=== PATIENT | female | born 1960 | race Caucasian/White ===

== ENCOUNTER 2019-09-03 10:46 | Emergency (ER) | payer MEDICARE ==
[~2019-09-03] VITALS: Ht 165.1 cm; Wt 93.9 kg
[2019-09-03 10:49] VITALS: BP 129/78
[2019-09-03 11:27] LABS: BASOPHILS # (AUTO) 0.08 x10^3/uL (0-0.1); BASOPHILS % (AUTO) 1 % (0-1); EOSINOPHILS % (AUTO) 2 % (1-7); LYMPHOCYTES % (AUTO) 21 % (22-44); MD NO; MEAN CORPUSCULAR HEMOGLOBIN 29.3 pg (27.0-34.8); MEAN CORPUSCULAR HGB CONC 33.6 g/dL (32.4-35.8); MEAN CORPUSCULAR VOLUME 87.1 fL (80-100); MEAN PLATELET VOLUME 9.6 fL (7.4-10.4); MONOCYTES # (AUTO) 1.31 x10^3/uL (0.2-0.8); MONOCYTES % (AUTO) 12 % (2-9); NEUTROPHILS # (AUTO) 6.92 x10^3/uL (1.8-6.8); NEUTROPHILS % (AUTO) 65 % (42-75); PLATELET COUNT 239 x10^3/uL (130-400); RED CELL DISTRIBUTION WIDTH 16.2 % (9.6-15.2)
[2019-09-03 11:32] LABS: MICROSCOPIC AUTO
[2019-09-03 11:33] LABS: CULTURE INDICATED? YES
[2019-09-03 11:43] LABS: ALBUMIN 3.6 g/dL (3.4-5.0); ANION GAP 7 mmol/L (5-15); CHLORIDE 105 mmol/L (98-107)
[2019-09-03 11:48] LABS: ALANINE AMINOTRANSFERASE 18 U/L (12-78); ALKALINE PHOSPHATASE 90 U/L (45-117); BILIRUBIN,TOTAL 0.6 mg/dL (0.2-1.0); CREATININE 0.63 mg/dL (0.55-1.02); TOTAL PROTEIN 8.2 g/dL (6.4-8.2); TROPONIN I < 0.015 ng/mL (0.000-0.045)
--- NOTE | 2019-09-03 13:58 | NUR ---
GUIDANCE CONSULTANT: PT ASSESED BY CHARU BENÍTEZ AND DC'D FROM TRIAGE.
== END 2019-09-03 14:01 | disposition home or self-care (01) ==
LOC: ED 13:40
DX: N30.00 Acute cystitis without hematuria (principal); J00 Acute nasopharyngitis [common cold]; R05 Cough; M79.7 Fibromyalgia; F17.200 Nicotine dependence, unspecified, uncomplicated
CPT/HCPCS: 36415; 71046; 80053; 81001; 84484; 85025; 87077; 87086; 87186; 93005; 99284

== ENCOUNTER 2019-09-20 17:31 | Emergency (ER) | payer MEDICARE ==
[~2019-09-20] VITALS: Ht 162.6 cm; Wt 92.0 kg
--- NOTE | 2019-09-20 18:25 | NUR ---
PT TO ROOM FROM LOBBY.
--- NOTE | 2019-09-20 18:40 | NUR ---
URINE COLLECTED/SENT TO LAB.
[2019-09-20 19:17] LABS: CULTURE INDICATED? YES; MICROSCOPIC INDICATED
[2019-09-20] MEDS ORDERED: ACETAMINOPHEN 325 MG TABLET ONE (20:26)
[2019-09-20] MEDS ORDERED: ACETAMINOPHEN 325 MG TABLET PO ONE (20:30)
[2019-09-20 21:11] VITALS: BP 132/61
--- NOTE | 2019-09-20 21:12 | NUR ---
PT D/C'D HOME WITH KNEE IMMOBILIZER AND WALKER.
== END 2019-09-20 21:14 | disposition home or self-care (01) ==
LOC: ED 21:09
DX: S83.91XA Sprain of unspecified site of right knee, initial encounter (principal); N30.01 Acute cystitis with hematuria; I10 Essential (primary) hypertension; E03.9 Hypothyroidism, unspecified; F17.210 Nicotine dependence, cigarettes, uncomplicated; W50.2XXA Accidental twist by another person, initial encounter; Y93.89 Activity, other specified; Y92.89 Other specified places as the place of occurrence of the external cause; Y99.8 Other external cause status
CPT/HCPCS: 29505; 81001; 87077; 87086; 87186; 99284

== ENCOUNTER 2019-11-12 13:23 | Emergency (ER) | payer MEDICARE ==
[~2019-11-12] VITALS: Ht 162.6 cm; Wt 90.6 kg
--- NOTE | 2019-11-12 14:05 | NUR ---
THIS IS A 59 YO FEMALE WHO PRESENTS TO THE ER C/O COUGH X 2 WEEKS, WORSE OVER THE LAST FEW DAYS AND CONGESTION IN EARS/NOSE. PT WAS TESTED AND TRX'D FOR STREP ON 11/01. PT CURRENTLY DENIES STREP THROAT AND REPROTS NEG CO-VID TEST. PT AO X 4. SKIN PWD. RESP EVEN AND UNLABORED. PT NSR 80'S. CALL LIGHT WITHIN REACH. WILL CONT TO MONITOR PT.
[2019-11-12] MEDS ORDERED: ALBUTEROL/IPRATROPIUM 2.5MG/0.5MG, 3 ML NPPB ONE (14:30)
[2019-11-12] MEDS ORDERED: ALBUTEROL/IPRATROPIUM 2.5MG/0.5MG, 3 ML ONE ×2 (14:43→14:51)
[2019-11-12 14:45] LABS: BASOPHILS # (AUTO) 0.07 x10^3/uL (0-0.1); BASOPHILS % (AUTO) 1 % (0-1); EOSINOPHILS # (AUTO) 0.31 x10^3/uL (0-0.4); EOSINOPHILS % (AUTO) 2 % (1-7); LYMPHOCYTES # (AUTO) 3.45 x10^3/uL (1-3.4); LYMPHOCYTES % (AUTO) 26 % (22-44); MD NO; MEAN CORPUSCULAR HEMOGLOBIN 29.1 pg (27.0-34.8); MEAN CORPUSCULAR HGB CONC 33.4 g/dL (32.4-35.8); MEAN CORPUSCULAR VOLUME 87.1 fL (80-100); MEAN PLATELET VOLUME 9.1 fL (7.4-10.4); MONOCYTES # (AUTO) 0.84 x10^3/uL (0.2-0.8); MONOCYTES % (AUTO) 6 % (2-9); NEUTROPHILS # (AUTO) 8.62 x10^3/uL (1.8-6.8); NEUTROPHILS % (AUTO) 65 % (42-75); PLATELET COUNT 297 x10^3/uL (130-400); RED BLOOD COUNT 5.16 x10^6/uL (3.82-5.3); RED CELL DISTRIBUTION WIDTH 15.4 % (9.6-15.2)
[2019-11-12 14:55] LABS: ALBUMIN 3.4 g/dL (3.4-5.0); ANION GAP 7 mmol/L (5-15); CALCIUM 9.8 mg/dL (8.5-10.1); CHLORIDE 106 mmol/L (98-107); CREATININE 0.53 mg/dL (0.55-1.02)
[2019-11-12] MEDS ORDERED: DOXYCYCLINE 100MG TABLET PO ONE (15:00)
--- NOTE | 2019-11-12 15:18 | NUR ---
PT MOVED TO NEGATIVE PRESSURE ROOM AND BREATHING TRX INITIATED. PT AO X 4. SKIN PWD. RESP EVEN AND UNLABORED. PT CONT TO HAVE OCCAISIONAL LOOSE PRODUCTIVE COUGH. 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 CALL LIGHT WITHIN REACH. WILL CONT TO MONITOR PT.
[2019-11-12] MEDS ORDERED: DOXYCYCLINE 100MG TABLET ONE ×2 (16:05→16:30)
--- NOTE | 2019-11-12 16:42 | NUR ---
PT MEDICATED ORDERED. PT REQUESTED FOOD D/T HAVING HX OF GI UPSET WITH DOXYCYCLINE. PROVIDED WITH PUDDING. PT AO X 4. SKIN PWD. RESP EVEN AND UNLABORED. NO ACUTE DISTRESS NOTED AT THIS TIME. CALL LIGHT WITHIN REACH. WILL CONT TO MONITOR PT.
[2019-11-12 16:51] VITALS: BP 125/70
== END 2019-11-12 16:55 | disposition home or self-care (01) ==
LOC: ED 14:55
DX: J15.9 Unspecified bacterial pneumonia (principal); J44.1 Chronic obstructive pulmonary disease with (acute) exacerbation; I10 Essential (primary) hypertension; J44.9 Chronic obstructive pulmonary disease, unspecified; M79.7 Fibromyalgia; E03.9 Hypothyroidism, unspecified; F17.200 Nicotine dependence, unspecified, uncomplicated
CPT/HCPCS: 36415; 71045; 80048; 82040; 83605; 84145; 85025; 87040; 93005; 99285; J7512

== ENCOUNTER 2020-03-10 14:03 | Emergency (ER) | payer OTHER ==
[~2020-03-10] VITALS: Ht 162.6 cm; Wt 88.6 kg
--- NOTE | 2020-03-10 14:30 | NUR ---
THIS IS A 59 YO FEMALE WHO PRSENTS TO THE ER C/O EXACERBATION OF ACUTE ON CHRONIC LEFT SHOULDER/BACK INJURY. PT IS CURRENTLY BEING TREATED BY WORKMAN'S COMP FOR A FALL. PT REPORTS SHE CANNOT TAKE MOST OPIODS OR NSAIDS AND DECLINES AVAILABLE PAIN MEDICATIONS OFFERED BY PA AT THIS TIME. PT AO X 4. PT MOVING ALL EXTREMITIES W/O DIFFICULTY WITH THE EXCEPTION THAT PT STATES SHE "CAN'T RAISE HER ARM ABOVE HER HEAD". PT ON CONT BP AND SPO2 MONITORS. WILL CONT TO MONITOR PT.
[2020-03-10] MEDS ORDERED: FENO160T PO (15:31)
[2020-03-10] MEDS ORDERED: DIAZ5TAB4 PO (15:31)
[2020-03-10] MEDS ORDERED: GABA800T5 PO (15:31)
[2020-03-10] MEDS ORDERED: HYDR25TA6 PO (15:31)
[2020-03-10] MEDS ORDERED: CYCL-259 PO (15:31)
[2020-03-10] MEDS ORDERED: LANS15CA5 PO (15:31)
[2020-03-10] MEDS ORDERED: CHOL10003 PO (15:31)
[2020-03-10] MEDS ORDERED: ACET-1600 PO (15:31)
[2020-03-10] MEDS ORDERED: TAPE50TA9 PO (15:31)
[2020-03-10 15:48] VITALS: BP 109/63
== END 2020-03-10 15:51 | disposition home or self-care (01) ==
LOC: ED 15:28
DX: S29.012A Strain of muscle and tendon of back wall of thorax, initial encounter (principal); S23.3XXA Sprain of ligaments of thoracic spine, initial encounter; G89.11 Acute pain due to trauma; M25.512 Pain in left shoulder; F17.200 Nicotine dependence, unspecified, uncomplicated; X58.XXXA Exposure to other specified factors, initial encounter; Y93.89 Activity, other specified; Y92.89 Other specified places as the place of occurrence of the external cause; Y99.8 Other external cause status
CPT/HCPCS: 72072; 99284